=== PATIENT | male | born 1975 | race Caucasian/White ===

== ENCOUNTER 2022-09-16 15:58 | Emergency (ER) | payer OTHER ==
[~2022-09-16] VITALS: Ht 175.3 cm; Wt 98.0 kg
[2022-09-16 21:17] LABS: HEMOGLOBIN 13.8 g/dL (13.5-17.5)
[2022-09-16 21:21] LABS: BASOPHILS % (AUTO) 0.2 % (0.0-2.0); EOSINOPHILS % (AUTO) 0.2 % (1.0-6.0); LYMPHOCYTES # (AUTO) 0.9 K/uL (1.0-4.8); LYMPHOCYTES % (AUTO) 4.8 % (22.0-44.0); MEAN CORPUSCULAR HEMOGLOBIN 29.7 pg (26.0-34.0); MEAN CORPUSCULAR HGB CONC 33.7 G/dL (31.0-37.0); MEAN CORPUSCULAR VOLUME 88 fL (80-100); MONOCYTES # (AUTO) 0.7 K/uL (0.1-1.0); MONOCYTES % (AUTO) 3.6 % (2.0-9.0); PLATELET COUNT (AUTO) 409 K/uL (150-450); RED BLOOD CELL COUNT(AUTO) 4.66 MIL/uL (4.50-5.90); RED CELL DISTRIBUTION WIDTH 13.5 % (11.5-14.5)
[2022-09-16 21:22] LABS: NEUTROPHILS % (AUTO) 91.2 % (40.0-70.0)
[2022-09-16 21:25] LABS: ANION GAP 8 mmol/L (8-16); CALCIUM, TOTAL 9.2 mg/dL (8.8-10.5); CARBON DIOXIDE 30 mmol/L (22-29); CHLORIDE 101 mmol/L (98-107); CREATININE 1.05 mg/dL (0.60-1.30); GLOMERULAR FILTR. RATE CALC > 60 mL/min (>60); GLUCOSE,RANDOM 149 mg/dL (70-110); POTASSIUM 3.8 mmol/L (3.5-5.1); SODIUM SERUM 139 mmol/L (136-145); UREA NITROGEN, BLOOD 20 mg/dL (7-18)
[2022-09-16 21:32] LABS: ALANINE AMINOTRANSFERASE 33 U/L (12-78); ALBUMIN 4.6 g/dL (3.4-5.0); ALKALINE PHOSPHATASE 72 U/L (46-116); ASPARTATE AMINOTRANSFERASE 30 U/L (15-37); BILIRUBIN,TOTAL 0.3 mg/dL (0.1-1.0); TOTAL PROTEIN, SERUM 8.3 g/dL (6.4-8.2)
[2022-09-16] MEDS ORDERED: NALO4SPR NASAL (21:42)
[2022-09-16 21:47] LABS: PLATELET MORPHOLOGY COMMENT LARGE PLTS PRESENT
[2022-09-16 21:52] VITALS: BP 139/74
== END 2022-09-16 21:55 | disposition home or self-care (01) ==
LOC: EMS 16:01
DX: T65.91XA Toxic effect of unspecified substance, accidental (unintentional), initial encounter (principal); R11.10 Vomiting, unspecified; R40.4 Transient alteration of awareness; F11.20 Opioid dependence, uncomplicated
CPT/HCPCS: 80053; 85025; 99284